=== PATIENT | female | born 1995 | race American Indian/Alaskan Native ===

== ENCOUNTER 2017-04-29 06:03 | Emergency (ER) | payer SELFPAY ==
[2017-04-29 06:43] VITALS: BP 128/87
--- NOTE | 2017-04-29 08:01 | Emergency Department Report ---
ED Lower Extremity HPI - General Chief Complaint: Extremity Injury, Lower Stated Complaint: LT KNEE INJURY Time Seen by Provider: 04/29/17 07:41 Source: patient Mode of arrival: Ambulatory Limitations: No Limitations - History of Present Illness Initial Comments: This is a 21-year-old female nontoxic, well nourished in appearance, no acute signs of distress presents to the ED complaining of left knee pain x1 day. Patient stated she was walking to her bed and twisted her knee. Patient denies any sensation of pop. Patient denies any knee trauma or direct blows. Patient describes pain as aching with level of 10 out of 10. Patient denies any numbness, tingling, knee swelling, joint redness, fever, chills, nausea, vomiting, chest pain or shortness of breath. Patient stated she had similar symptoms last year that has subsided with no medical treatment. Patient denies any drug allergies. Denies Past medical history MD Complaint: knee injury -: Gradual, days(s) (1) Injury: Knee: Left Type of Injury: other (twist) Place: home Severity: mild Severity scale (0 -10): 10 Improves With: immobilization Worsens With: movement Context: walking Associated Symptoms: able to partially bear weight, ambulatory. denies: snap/ pop sensation, swelling, numbness, tingling, unable to bear weight - Related Data Previous Rx's Medication Instructions Recorded Last Taken Type Ibuprofen [Motrin 600 MG tab] 600 mg PO Q8H PRN #30 tablet 04/29/17 Unknown Rx Allergies Allergy/AdvReac Type Severity Reaction Status Date / Time peanut Allergy Anaphylaxis Verified 04/29/17 06:34 ED Review of Systems ROS: Stated complaint: LT KNEE INJURY Other details as noted in HPI Constitutional: denies: chills, fever Eyes: denies: eye pain, eye discharge, vision change ENT: denies: ear pain, throat pain Respiratory: denies: cough, shortness of breath, wheezing Cardiovascular: denies: chest pain, palpitations Endocrine: no symptoms reported Gastrointestinal: denies: abdominal pain, nausea, diarrhea Genitourinary: denies: urgency, dysuria, discharge Musculoskeletal: denies: back pain, joint swelling, arthralgia Skin: denies: rash, lesions Neurological: denies: headache, weakness, paresthesias Psychiatric: denies: anxiety, depression Hematological/Lymphatic: denies: easy bleeding, easy bruising ED Past Medical Hx - Past Medical History Previous Medical History?: Yes Additional medical history: Broken Left Leg - Social History Smoking Status: Never Smoker Substance Use Type: None - Medications Home Medications: Home Medications Medication Instructions Recorded Confirmed Last Taken Type Ibuprofen [Motrin 600 MG tab] 600 mg PO Q8H PRN #30 tablet 04/29/17 Unknown Rx ED Physical Exam - General Limitations: No Limitations General appearance: alert, in no apparent distress - Head Head exam: Present: atraumatic, normocephalic, normal inspection - Eye Eye exam: Present: normal appearance, PERRL, EOMI. Absent: scleral icterus, conjunctival injection, nystagmus, periorbital swelling, periorbital tenderness Pupils: Present: normal accommodation - ENT ENT exam: Present: normal exam, normal orophraynx, mucous membranes moist, TM's normal bilaterally, normal external ear exam - Neck Neck exam: Present: normal inspection, full ROM. Absent: tenderness, meningismus, lymphadenopathy, thyromegaly - Respiratory Respiratory exam: Present: normal lung sounds bilaterally. Absent: respiratory distress, wheezes, rales, rhonchi, stridor, chest wall tenderness, accessory muscle use, decreased breath sounds, prolonged expiratory - Cardiovascular Cardiovascular Exam: Present: regular rate, normal rhythm, normal heart sounds. Absent: bradycardia, tachycardia, irregular rhythm, systolic murmur, diastolic murmur, rubs, gallop - GI/Abdominal GI/Abdominal exam: Present: soft, normal bowel sounds. Absent: distended, tenderness, guarding, rebound, rigid, diminished bowel sounds - Rectal Rectal exam: Present: deferred - Extremities Exam Extremities exam: Present: normal inspection, full ROM, normal capillary refill. Absent: tenderness, pedal edema, joint swelling, calf tenderness - Expanded Lower Extremity Exam Left Hip exam: Present: normal inspection, full ROM, external rotation, internal rotation, pelvic stability. Absent: tenderness, swelling, erythema, shortening Upper Leg exam: Present: normal inspection, full ROM Knee exam: Present: normal inspection, full ROM, full knee extension. Absent: tenderness, swelling, abrasion, laceration, ecchymosis, deformity, crepidus, dislocation, erythema, effusion, pain w/ pronation/supination, posterior draw sign, pain/laxity with valgus, pain/laxity with varus Lower Leg exam: Present: normal inspection, full ROM. Absent: tenderness, swelling, abrasion, laceration, ecchymosis, deformity, crepidus, dislocation, erythema, palpable cord, Curtis's sign Ankle exam: Present: normal inspection, full ROM. Absent: tenderness, swelling Foot/Toe exam: Present: normal inspection, full ROM Neuro vascular tendon exam: Present: no vascular compromise. Absent: pulse deficit, abnormal cap refill, motor deficit, sensory deficit, tendon deficit, extremity cold to touch, pallor, abnormal 2-point discrimination, decreased fine /light touch, foot drop, peroneal nerve deficit, significant pain with passive ROM of distal joint Gait: Positive: observed and limited by pain - Back Exam Back exam: Present: normal inspection, full ROM. Absent: tenderness, CVA tenderness (R), CVA tenderness (L), muscle spasm, paraspinal tenderness, vertebral tenderness, rash noted - Neurological Exam Neurological exam: Present: alert, oriented X3, CN II-XII intact, normal gait, reflexes normal - Psychiatric Psychiatric exam: Present: normal affect, normal mood - Skin Skin exam: Present: warm, dry, intact, normal color. Absent: rash ED Course Vital Signs 04/29/17 06:36 Temperature 99.0 F Pulse Rate 74 Respiratory 20 Rate Blood Pressure 128/87 O2 Sat by Pulse 100 Oximetry - Reevaluation(s) Reevaluation #1: 04/29/17 08:03 Patient speaking in full sentences with no signs of distress. ED Lower Extremity MDM - Medical Decision Making ED course; this is a 21-year-old female that presents with left knee pain 1-patient is stable. Patient was examined myself. X-ray has been obtained of left knee and dictated by radiologist with normal findings and no findings of any fractures, dislocation or any abnormalities. Patient was notified of x-ray results with a further question noted by the patient. 2-patient received ibuprofen 800 mg by mouth in the ED as well as discharge. 3-patient was instructed to rest, elevate, ice extremity. 4-patient received a knee immobilizer and crutches at the time of discharge and was instructed to follow-up with orthopedic doctor in 3-5 days or if symptoms worsen or continue return to emergency room as soon as possible. 5- At time time of discharge, the patient does not seem toxic or ill in appearance. No acute signs of distress noted. Patient agrees to discharge treatment plan of care. No further questions noted by the patient. Critical care attestation.: If time is entered above; I have spent that time in minutes in the direct care of this critically ill patient, excluding procedure time. ED Disposition Clinical Impression: Knee pain Qualifiers: Chronicity: unspecified Laterality: left Qualified Code(s): M25.562 - Pain in left knee Disposition: TO HOME OR SELFCARE Is pt being admited?: No Does the pt Need Aspirin: No Condition: Stable Instructions: Knee Pain (ED), Ibuprofen (By mouth), Crutch Instructions (ED), Knee Immobilizer (ED) Additional Instructions: follow-up with orthopedic doctor in 3-5 days or if symptoms worsen or continue return to emergency room as soon as possible. Rest, elevate, and ice extremity. Prescriptions: Ibuprofen [Motrin 600 MG tab] 600 mg PO Q8H PRN #30 tablet PRN Reason: Pain Referrals: PRIMARY MD BARBIE [Primary Care Provider] - 3-5 Days LUZ MARINA LESTER MD [Staff Physician] - 3-5 Days [facility] [Outside] - 3-5 Days [facility] [Outside] - 3-5 Days
[2017-04-29] MEDS ORDERED: MOTRIN PO ONE (08:07)
[2017-04-29] MEDS ORDERED: CLARITIN PO ONE (08:28)
[2017-04-29] MEDS ORDERED: CLARITIN ONE (08:30)
--- NOTE | 2017-04-29 09:14 | XRay Report ---
LEFT KNEE: Pain The bony architecture is intact without evidence of fracture or dislocation. No significant soft tissue abnormality is seen. IMPRESSION: Normal left knee.
== END 2017-04-29 09:31 | disposition home or self-care (01) ==
LOC: ED 06:03
DX: M25.562 Pain in left knee (principal)